=== PATIENT | female | born 1930 | race Caucasian/White ===

== ENCOUNTER → 2018-02-03 | Day surgery (SDC) | payer OTHER, BC ==
[~2018-02-03] MED LIST: BUPIVACAINE HCL/PF 0.5% (5MG/ML) 10 ML VIAL ONE
[2018-02-03 09:35] LABS: BASO % 0.6 % (0-2.0); EOS % 1.3 % (0-4.5); HEMATOCRIT 39.6 % (32.4-45.2); HEMOGLOBIN 13.5 GM/dL (10.7-15.3); LYMPH % 14.3 % (8-40); MCH 29.3 pg (25.7-33.7); MEAN CELL VOLUME 86.2 fl (80-96); MEAN PLT VOLUME 10.2 fl (7.5-11.1); NEUT % 76.8 % (42.8-82.8); PLATELET COUNT 142 K/MM3 (134-434); RDW 14.4 % (11.6-15.6); WHITE BLOOD COUNT 7.2 K/mm3 (4.0-10.0)
[2018-02-03 09:55] LABS: INR 0.96 (0.83-1.09); PROTHROMBIN TIME (PATIENT) 11.3 SEC (9.7-13.0)
== END | disposition home or self-care (01) ==
LOC: JRADIR 08:32
PROVIDERS: ATTEND Physical Medicine & Rehabilitation
PROC: 3E0U33Z Introduction of Anti-inflammatory into Joints, Percutaneous Approach (ICD-10-PCS; principal; 2018-02-03)
PROC: 3E0U3BZ Introduction of Anesthetic Agent into Joints, Percutaneous Approach (ICD-10-PCS; 2018-02-03)
DX: M16.11 Unilateral primary osteoarthritis, right hip (principal)
CPT/HCPCS: 27093; 36415; 73525-TC-FY; 76000-TC-FY; 85025; 85610; G0260

== ENCOUNTER 2018-10-12 07:24 | Inpatient (IN) | payer OTHER, BC ==
[2018-10-04 12:38] VITALS: BMI 17.8
[2018-10-12] MEDS ORDERED: MIDAZOLAM HCL 2 MG/2 ML SINGLE DOSE VIAL ONE ×2 (07:34)
[2018-10-12] MEDS ORDERED: CEFAZOLIN 2 GM in DEXTROSE 5%-WATER - 50 ML IVPB ONE (07:35)
[2018-10-12] MEDS ORDERED: TRANEXAMIC ACID 1000 MG/10 ML VIAL IVPUSH ONE (07:35)
[2018-10-12] MEDS ORDERED: ceFAZolin SODIUM 1 GM VIAL ONE ×2 (07:39→08:34)
[2018-10-12] MEDS ORDERED: LIDOCAINE HCL/PF 2% SDV 5ML VIAL ONE (07:39)
[2018-10-12] MEDS ORDERED: SUCCINYLCHOLINE CHLORIDE 200 MG/10 ML SYRINGE ONE (07:39)
[2018-10-12] MEDS ORDERED: SODIUM CHLORIDE 0.9% P/F 10 ML VIAL IJ ONE (07:39)
[2018-10-12] MEDS ORDERED: PROPOFOL 20 ML ONE (07:39)
[2018-10-12] MEDS ORDERED: KETOROLAC TROMETHAMINE 30 MG/1 ML VIAL ONE (07:39)
[2018-10-12] MEDS ORDERED: DEXAMETHASONE SOD PHOSPHATE 4 MG/1 ML VIAL ONE (07:39)
--- NOTE | 2018-10-12 07:59 | HP ---
Satellite [facility] - Chief Complaint Chief Complaint: right hip pain - Past Medical History Allergies/Adverse Reactions: Allergies Allergy/AdvReac Type Severity Reaction Status Date / Time Iodinated Contrast Media Allergy RASH IN Verified 10/04/18 12:10 [Iodinated Contrast Media - GROIN AREA IV Dye] AND UPPER THIGHS Sulfa (Sulfonamide Allergy "UNSURE" Verified 10/04/18 12:10 Antibiotics) - Current Medications Current Medications: Home Medications Medication Instructions Recorded Atorvastatin Ca [Lipitor] 10 mg PO HS 06/06/13 Levothyroxine [Synthroid -] 75 mcg PO DAILY 06/06/13 Ranitidine [Zantac -] 150 mg PO BID 06/06/13 Atenolol [Tenormin -] 50 mg PO DAILY 01/18/14 Clopidogrel Bisulfate [Plavix -] 75 mg PO DAILY 01/19/14 Ascorbic Acid [Vitamin C] 500 mg PO DAILY 10/04/18 Biotin 5,000 mcg PO DAILY 10/04/18 Cholecalciferol (Vitamin D3) 5,000 unit PO DAILY 10/04/18 [Vitamin D3] Hydrochlorothiazide [Hctz -] 12.5 mg PO DAILY 10/04/18 Lisinopril 20 mg PO DAILY 10/04/18 Satellite Physical Exam - Physical Examination General Appearance: Well Nourished, Well Developed, Alert & Oriented x3 ENT: Clear Lung: Normal air movement Heart: Regular rate & rhythm Extremities: Other (right hip- + ttp, decr rom, nvi, xrays show grade 4 hip djd) Neurological: Intact, Alert, Oriented Satellite Impression/Plan - Impression/Plan Impression: right hip djd Operative Procedure: right mia thr Date to be Performed: 10/12/18
[2018-10-12] MEDS ORDERED: ONDANSETRON 4 MG/2 ML VIAL IVPUSH PRN (08:01)
[2018-10-12] MEDS ORDERED: LACTATED RINGERS SOLUTION 1,000 ML IV SCH ×2 (08:15→12:00)
[2018-10-12] MEDS ORDERED: DEXAMETHASONE SOD PHOSPHATE/PF 10 MG/ML SDV ONE (08:23)
[2018-10-12] MEDS ORDERED: VANCOMYCIN 1,000 MG VIAL (RESTRICTED TO ID ONLY) ONE (08:34)
[2018-10-12] MEDS ORDERED: ePHEDrine SULFATE 50 MG/1 ML AMPULE ONE (10:46)
[2018-10-12] MEDS ORDERED: VANCOMYCIN 1,000 MG VIAL (RESTRICTED TO ID ONLY) IVPB ONE (11:20)
[2018-10-12] MEDS ORDERED: RANITIDINE HCL 150 MG TABLET (FP) PO PRN (11:50)
[2018-10-12] MEDS ORDERED: MAG HYDROX/AL HYDROX/SIMETH 30 ML UNIT-DOSE CUP PO PRN (11:51)
[2018-10-12] MEDS ORDERED: MAGNESIUM HYDROX 2400MG/30ML ORAL SUSPENSION 30 ML CUP PO PRN (11:51)
--- NOTE | 2018-10-12 11:57 | OP ---
Operative Note - Note: Operative Date: 10/12/18 (tia) Pre-Operative Diagnosis: right hip djd Operation: right mia thr Post-Operative Diagnosis: Same as Pre-op Surgeon: Yusuf Alaniz Optoelectronics Engineer: Eron Ward Anesthesiologist/PROJECT DEVELOPMENT COORDINATOR: Sean Garcia Anesthesia: Spinal, Local Specimens Removed: femoral head Estimated Blood Loss (mls): 100 Operative Report Dictated: Yes
--- NOTE | 2018-10-12 12:29 | SPEC ---
DATE OF OPERATION: 10/12/2018 PREOPERATIVE DIAGNOSIS: Degenerative joint disease right hip. POSTOPERATIVE DIAGNOSIS: Degenerative joint disease right hip. PROCEDURE PERFORMED: Right total hip replacement with robotic-assisted navigation (MAKOplasty). SURGICAL ATTENDING: Yusuf Alaniz MD NETWORK CABLE INSTALLER: GLENN Cee ANESTHESIA: Regional and spinal. CLOSURE: An Accolade II size 5 press-fit femoral stem, a standard MDM head, and a 48 mm press-fit Trident II acetabulum. Number 1 Vicryl for fascia, 0 and 2-0 subcutaneous, 3-0 V-Loc subcuticular with skin glue for skin, 4-0 undyed Vicryl for pin sites. ESTIMATED BLOOD LOSS: Less than 100 mL. COMPLICATIONS: None. CONDITION: To the recovery room in stable condition. DESCRIPTION OF PROCEDURE: The patient was taken to the operating room on October 12, 2018. General and regional anesthesia was administered by the anesthesiologist. IV Kefzol and TXA were administered prophylactically prior to the case. The patient was placed in the lateral decubitus position will all prominences well-padded. The right hip area was prepped and draped in the usual sterile fashion. Using 3 small stab incisions over the iliac crest, 3 threaded pins were drilled in power fashion through the 2 tables of the crest. These pins were fastened and the navigation array for the Anthony navigation system. Next, a 12 to 15-cm curved longitudinal incision over the posterolateral aspect of the greater trochanter was incised. Hemostasis was achieved with Bovie cautery. Sharp dissection was carried down to level of the fascia. The fascia was opened the entire length of the incision, spreading the fibers of the gluteus laine in the direction of origin. A Charnley retractor was placed in this layer. Care was taken not to impale the sciatic nerve. The short external rotators were detached off the insertion of the greater trochanter and peeled off the capsule. A posterior capsulotomy was then performed. A check point was malleted into the greater trochanter and a point on the inferior pole of the patella was obtained as well. These 2 points were used to assess the preoperative offset and limb lengths of the hip. The hip was then dislocated. The femoral neck was then osteotomized down to the appropriate level as directed by the navigation device. Anterior and posterior retractors were placed, exposing the acetabulum. A circumferential labral excision was performed. A check point was malleted into the acetabulum as well. Multiple sites inside the acetabulum and around the rim were utilized to register the acetabulum with the navigation device. An excellent registration of less than 0.5 mm was obtained. The hip was then reamed with the appropriate reamer down to the appropriate depth, with the appropriate orientation and version as assessed on our preoperative plan for this patient. The reamer was removed and the acetabulum was inspected to have good bleeding surfaces throughout. The real acetabular cup was then malleted down into place, with the holes in the appropriate position, until an excellent fixation was obtained. No screws were necessary. The navigation device ensured appropriate orientation and version, with the depth as predetermined. The appropriate liner was then clipped into place. Attention was directed to the femur. The proximal femur was prepared by use a box chisel, a canal finder and serial broaches until the broach achieved excellent rigidity in the proximal femur with the appropriate version being applied. A calcar planer was used to smooth off the calcar flush with the trial components. A trial reduction with the appropriate head was done, and the hip was reduced. The hip was taken through a range of motion from full extension with external rotation to marked flexion, and was stable at 90 degrees of flexion. It was stable to marked abduction and internal rotation, with a positive hang test and negative telescoping. Limb lengths were ascertained visually as well as with the navigation device to be within the targeted range for this patient. The trial component was removed. The real component was then malleted into place. The head was cold welded to the trunnion, and the hip was reduced. Range of motion, stability and limb lengths were as described in the trial component. Then the hip was pulse antibiotic irrigated. Vancomycin powder was placed in the hip joint. The capsule was closed. The fascia was then closed as well using number 1 Vicryl interrupted suture, 0 and 2-0 subcutaneous, and 3-0 V-Loc for the skin. 4-0 undyed Vicryl was used to close the pin sites after the pins were removed. All check points were also removed. Sterile Aquacel dressing was applied. The patient was awakened from anesthesia and transferred into the supine position. Bilateral SCDs and an abduction pillow were placed. X-rays revealed excellent position of the components. The patient was transferred to the recovery room in stable condition, with no complications. Estimated blood loss was less than 100 mL. Alicia GAMA/[id number]
[2018-10-12] MEDS: CEFAZOLIN 2 GM/D5W 2 GM/50 ML ML IVPB SCH (18:36)
[2018-10-12] MEDS: ATORVASTATIN CA 10 MG TABLET (FP) PO SCH (21:40)
[2018-10-12] MEDS: SENNOSIDES/DOCUSATE COMBO (SENNA PLUS) TABLET (UD) PO SCH (21:40)
[2018-10-12] MEDS: oxyCODONE HCL 5 MG TABLET PO PRN (22:42)
[2018-10-13] MEDS: CEFAZOLIN 2 GM/D5W 2 GM/50 ML ML IVPB SCH (02:02)
[2018-10-13 06:58] LABS: HEMATOCRIT 32.5 % (32.4-45.2); HEMOGLOBIN 10.4 GM/dl (10.7-15.3); MCH 27.9 pg (25.7-33.7); MEAN CELL VOLUME 87.2 fl (80-96); MEAN PLT VOLUME 8.5 fl (7.5-11.1); PLATELET COUNT 147 K/MM3 (134-434); RBC 3.73 M/mm3 (3.60-5.2); RDW 13.6 % (11.6-15.6); WHITE BLOOD COUNT 12.6 K/mm3 (4.0-10.8)
[2018-10-13] MEDS ORDERED: ATENOLOL 50 MG TABLET (FP) PO SCH (10:00)
[2018-10-13] MEDS: CLOPIDOGREL BISULFATE 75 MG TABLET (FP) PO SCH (10:12)
[2018-10-13] MEDS: HYDROCHLOROTHIAZIDE 12.5 MG CAPSULE (FP) PO SCH (10:12)
[2018-10-13] MEDS: LEVOTHYROXINE NA 75 MCG TABLET (FP) PO SCH (10:12)
[2018-10-13] MEDS: MULTIVITAMINS (DAILY MVI) TABLET (FP) PO SCH (10:12)
[2018-10-13] MEDS: LISINOPRIL 20 MG TABLET (FP) PO SCH (10:13)
[2018-10-13] MEDS: SENNOSIDES/DOCUSATE COMBO (SENNA PLUS) TABLET (UD) PO SCH ×2 (10:13→21:21)
[2018-10-13] MEDS: oxyCODONE HCL 5 MG TABLET PO PRN (10:14)
--- NOTE | 2018-10-13 12:11 | PN ---
Progress Note (short form) - Note Progress Note: Ortho Pt seen and examined s/p right mia thr pod #1 Selected Entries 10/13/18 06:00 Temperature 97.9 F Pulse Rate 79 Respiratory 18 Rate Blood Pressure 105/47 L Laboratory Tests 10/13/18 06:53 WBC 12.6 H Hgb 10.4 L Hct 32.5 Plt Count 147 dressing c/d/i, calf soft, nt nvi a/p PT hip precautions dvt ppx pain control d/c planning for snf
--- NOTE | 2018-10-13 12:55 | PN ---
Progress Note, Physician Chief Complaint: s/p right hip arthroplasty under spinal anesthesia post op day one History of Present Illness: paravertebral block for post op pain control. - Current Medication List Current Medications: Active Medications Al Hydroxide/Mg Hydroxide (Mylanta Oral Suspension -) 30 ml PO Q4H PRN PRN Reason: DYSPEPSIA Atenolol (Tenormin -) 50 mg PO DAILY [facility] Last Admin: 10/13/18 10:12 Dose: 50 mg Atorvastatin Calcium (Lipitor -) 10 mg PO HS [facility] Last Admin: 10/12/18 21:40 Dose: 10 mg Clopidogrel Bisulfate (Plavix -) 75 mg PO DAILY [facility] Last Admin: 10/13/18 10:12 Dose: 75 mg Fentanyl (Sublimaze Injection -) 25 mcg IVPUSH [id number] PRN PRN Reason: PAIN-PACU ORDER X 4 DOSES ONLY Hydrochlorothiazide (Hctz -) 12.5 mg PO DAILY [facility] Last Admin: 10/13/18 10:12 Dose: 12.5 mg Lactated Ringer's (Lactated Ringers Solution) 1,000 mls @ 75 mls/hr IV ASDIR [facility] Last Admin: 10/12/18 14:53 Dose: Not Given Levothyroxine Sodium (Synthroid -) 75 mcg PO DAILY [facility] Last Admin: 10/13/18 10:12 Dose: 75 mcg Lisinopril (Prinivil) 20 mg PO DAILY [facility] Last Admin: 10/13/18 10:13 Dose: 20 mg Magnesium Hydroxide (Milk Of Magnesia -) 30 ml PO PRN PRN PRN Reason: CONSTIPATION Multivitamins/Minerals/Vitamin C (Tab-A-Vit -) 1 tab PO DAILY [facility] Last Admin: 10/13/18 10:12 Dose: 1 tab Ondansetron HCl (Zofran Injection) 4 mg IVPUSH Q6H PRN PRN Reason: NAUSEA AND/OR VOMITING Ranitidine HCl (Zantac -) 150 mg PO DAILY PRN PRN Reason: INDIGESTION Senna/Docusate Sodium (Pericolace -) 2 tablet PO BID [facility] Last Admin: 10/13/18 10:13 Dose: 2 tablet - Objective Vital Signs: Vital Signs Temperature 97.9 F 10/13/18 06:00 Pulse Rate 79 10/13/18 06:00 Respiratory Rate 18 10/13/18 06:00 Blood Pressure 105/47 L 10/13/18 06:00 O2 Sat by Pulse Oximetry (%) 100 10/13/18 06:00 Constitutional: Yes: Well Nourished Cardiovascular: Yes: WNL Respiratory: Yes: WNL Gastrointestinal: Yes: WNL Labs: CBC, BMP 10/13/18 06:53 Assessment/Plan No adverse reaction to anesthetic, pain controlled. dept of anesthesia will sign off care at this time
[2018-10-13] MEDS: traMADol HCL 50 MG TABLET PO PRN ×2 (17:32→21:20)
--- NOTE | 2018-10-13 21:16 | PN ---
Progress Note, Physician Chief Complaint: s/p right mia thr pod #1 History of Present Illness: 88 Y old lady with H/O HTN,SC S/P stent, HLD doing well after surgey having Low BP Decrease Atenelol to 25 Lisinopril to 10 Pain Better controlled with Tramadol - Current Medication List Current Medications: Active Medications Al Hydroxide/Mg Hydroxide (Mylanta Oral Suspension -) 30 ml PO Q4H PRN PRN Reason: DYSPEPSIA Atenolol (Tenormin -) 50 mg PO DAILY [facility] Last Admin: 10/13/18 10:12 Dose: 50 mg Atorvastatin Calcium (Lipitor -) 10 mg PO HS [facility] Last Admin: 10/12/18 21:40 Dose: 10 mg Clopidogrel Bisulfate (Plavix -) 75 mg PO DAILY [facility] Last Admin: 10/13/18 10:12 Dose: 75 mg Fentanyl (Sublimaze Injection -) 25 mcg IVPUSH [id number] PRN PRN Reason: PAIN-PACU ORDER X 4 DOSES ONLY Hydrochlorothiazide (Hctz -) 12.5 mg PO DAILY [facility] Last Admin: 10/13/18 10:12 Dose: 12.5 mg Lactated Ringer's (Lactated Ringers Solution) 1,000 mls @ 75 mls/hr IV ASDIR [facility] Last Admin: 10/12/18 14:53 Dose: Not Given Levothyroxine Sodium (Synthroid -) 75 mcg PO DAILY [facility] Last Admin: 10/13/18 10:12 Dose: 75 mcg Lisinopril (Prinivil) 20 mg PO DAILY [facility] Last Admin: 10/13/18 10:13 Dose: 20 mg Magnesium Hydroxide (Milk Of Magnesia -) 30 ml PO PRN PRN PRN Reason: CONSTIPATION Multivitamins/Minerals/Vitamin C (Tab-A-Vit -) 1 tab PO DAILY [facility] Last Admin: 10/13/18 10:12 Dose: 1 tab Ondansetron HCl (Zofran Injection) 4 mg IVPUSH Q6H PRN PRN Reason: NAUSEA AND/OR VOMITING Ranitidine HCl (Zantac -) 150 mg PO DAILY PRN PRN Reason: INDIGESTION Senna/Docusate Sodium (Pericolace -) 2 tablet PO BID [facility] Last Admin: 10/13/18 10:13 Dose: 2 tablet Tramadol HCl (Ultram -) 50 mg PO Q4H PRN PRN Reason: PAIN LEVEL 1-5 Last Admin: 10/13/18 17:32 Dose: 50 mg - Objective Vital Signs: Vital Signs Temperature 97.5 F L 10/13/18 18:00 Pulse Rate 67 10/13/18 18:00 Respiratory Rate 18 10/13/18 20:19 Blood Pressure 93/46 L 10/13/18 18:00 O2 Sat by Pulse Oximetry (%) 99 10/13/18 20:19 Constitutional: Yes: No Distress Eyes: Yes: Conjunctiva Clear HENT: Yes: Atraumatic, Normocephalic Neck: Yes: Supple, Trachea Midline Respiratory: Yes: Regular, CTA Bilaterally Gastrointestinal: Yes: Normal Bowel Sounds, Soft Musculoskeletal: Yes: Joint Stiffness Edema: No Peripheral Pulses WNL: Yes Neurological: Yes: Alert, Oriented, Cran Nerves II-XII Intact Labs: CBC, BMP 10/13/18 06:53 Problem List - Problems (1) Status post right hip replacement Code(s): Z96.641 - PRESENCE OF RIGHT ARTIFICIAL HIP JOINT (2) HTN (hypertension) Code(s): I10 - ESSENTIAL (PRIMARY) HYPERTENSION (3) History of SC (myocardial infarction) Code(s): I25.2 - OLD MYOCARDIAL INFARCTION (4) DJD (degenerative joint disease) Code(s): M19.90 - UNSPECIFIED OSTEOARTHRITIS, UNSPECIFIED SITE Assessment/Plan Pt will be going to [facility] discussed with senior living admitting
[2018-10-13] MEDS: ATORVASTATIN CA 10 MG TABLET (FP) PO SCH (21:20)
[2018-10-14] MEDS: traMADol HCL 50 MG TABLET PO PRN (06:28)
[2018-10-14 07:52] LABS: HEMATOCRIT 30.2 % (32.4-45.2); HEMOGLOBIN 9.8 GM/dl (10.7-15.3); MCHC 32.4 g/dl (32.0-36.0); MEAN CELL VOLUME 86.5 fl (80-96); PLATELET COUNT 130 K/MM3 (134-434); RBC 3.49 M/mm3 (3.60-5.2); RDW 13.8 % (11.6-15.6); WHITE BLOOD COUNT 10.3 K/mm3 (4.0-10.8)
--- NOTE | 2018-10-14 07:59 | PN ---
Progress Note (short form) - Note Progress Note: Ortho Pt seen and examined s/p right mia thr pod #2 Selected Entries 10/14/18 06:00 Temperature 98.4 F Pulse Rate 69 Respiratory 19 Rate Blood Pressure 95/55 L Laboratory Tests 10/14/18 07:12 WBC Pending Hgb Pending Hct Pending Plt Count Pending dressing c/d/i, calf soft, nt nvi a/p PT hip precautions dvt ppx pain control d/c planning for snf tomorrow
[2018-10-14] MEDS: SENNOSIDES/DOCUSATE COMBO (SENNA PLUS) TABLET (UD) PO SCH ×2 (09:15→21:39)
[2018-10-14] MEDS: MULTIVITAMINS (DAILY MVI) TABLET (FP) PO SCH (09:16)
[2018-10-14] MEDS: LISINOPRIL 20 MG TABLET (FP) PO SCH (09:16)
[2018-10-14] MEDS: CLOPIDOGREL BISULFATE 75 MG TABLET (FP) PO SCH (09:16)
[2018-10-14] MEDS: HYDROCHLOROTHIAZIDE 12.5 MG CAPSULE (FP) PO SCH (09:16)
[2018-10-14] MEDS: LISINOPRIL 10 MG TABLET (FP) PO SCH (09:16)
[2018-10-14] MEDS: ATENOLOL 25 MG TABLET (FP) PO SCH (09:16)
[2018-10-14] MEDS: LEVOTHYROXINE NA 75 MCG TABLET (FP) PO SCH (09:16)
--- NOTE | 2018-10-14 20:46 | PN ---
Progress Note, Physician Chief Complaint: s/p right mia thr pod #2 History of Present Illness: 88 Y old lady with H/O HTN,FL S/P stent, HLD doing well after surgey having Low BP Decrease Atenelol to 25 Lisinopril to 10 Pain Better controlled with Tramadol Pt BP is better today - Current Medication List Current Medications: Active Medications Al Hydroxide/Mg Hydroxide (Mylanta Oral Suspension -) 30 ml PO Q4H PRN PRN Reason: DYSPEPSIA Atenolol (Tenormin -) 25 mg PO DAILY [facility] Last Admin: 10/14/18 09:16 Dose: Not Given Atorvastatin Calcium (Lipitor -) 10 mg PO HS [facility] Last Admin: 10/13/18 21:20 Dose: 10 mg Clopidogrel Bisulfate (Plavix -) 75 mg PO DAILY [facility] Last Admin: 10/14/18 09:16 Dose: 75 mg Fentanyl (Sublimaze Injection -) 25 mcg IVPUSH [id number] PRN PRN Reason: PAIN-PACU ORDER X 4 DOSES ONLY Hydrochlorothiazide (Hctz -) 12.5 mg PO DAILY [facility] Last Admin: 10/14/18 09:16 Dose: Not Given Lactated Ringer's (Lactated Ringers Solution) 1,000 mls @ 75 mls/hr IV ASDIR [facility] Last Admin: 10/12/18 14:53 Dose: Not Given Levothyroxine Sodium (Synthroid -) 75 mcg PO DAILY [facility] Last Admin: 10/14/18 09:16 Dose: 75 mcg Lisinopril (Prinivil) 20 mg PO DAILY [facility] Last Admin: 10/14/18 09:16 Dose: Not Given Lisinopril (Prinivil) 10 mg PO DAILY [facility] Last Admin: 10/14/18 09:16 Dose: Not Given Magnesium Hydroxide (Milk Of Magnesia -) 30 ml PO PRN PRN PRN Reason: CONSTIPATION Multivitamins/Minerals/Vitamin C (Tab-A-Vit -) 1 tab PO DAILY [facility] Last Admin: 10/14/18 09:16 Dose: 1 tab Ondansetron HCl (Zofran Injection) 4 mg IVPUSH Q6H PRN PRN Reason: NAUSEA AND/OR VOMITING Ranitidine HCl (Zantac -) 150 mg PO DAILY PRN PRN Reason: INDIGESTION Senna/Docusate Sodium (Pericolace -) 2 tablet PO BID [facility] Last Admin: 10/14/18 09:15 Dose: 2 tablet Tramadol HCl (Ultram -) 50 mg PO Q4H PRN PRN Reason: PAIN LEVEL 1-5 Last Admin: 10/14/18 06:28 Dose: 50 mg - Objective Vital Signs: Vital Signs Temperature 98.6 F 10/14/18 18:00 Pulse Rate 76 10/14/18 18:00 Respiratory Rate 18 10/14/18 19:45 Blood Pressure 100/40 L 10/14/18 18:00 O2 Sat by Pulse Oximetry (%) 96 10/14/18 19:45 Constitutional: Yes: No Distress Eyes: Yes: Conjunctiva Clear, EOM Intact HENT: Yes: Atraumatic, Normocephalic Neck: Yes: Supple, Trachea Midline Cardiovascular: Yes: Regular Rate and Rhythm, S1, S2 Respiratory: Yes: Regular, CTA Bilaterally Gastrointestinal: Yes: Normal Bowel Sounds, Soft Musculoskeletal: Yes: Joint Stiffness Edema: No Labs: CBC, BMP 10/14/18 07:12 Problem List - Problems (1) Status post right hip replacement Code(s): Z96.641 - PRESENCE OF RIGHT ARTIFICIAL HIP JOINT (2) HTN (hypertension) Code(s): I10 - ESSENTIAL (PRIMARY) HYPERTENSION (3) History of [place] (myocardial infarction) Code(s): I25.2 - OLD MYOCARDIAL INFARCTION (4) DJD (degenerative joint disease) Code(s): M19.90 - UNSPECIFIED OSTEOARTHRITIS, UNSPECIFIED SITE
[2018-10-14] MEDS: ATORVASTATIN CA 10 MG TABLET (FP) PO SCH (21:39)
[2018-10-15 06:31] VITALS: BP 120/54; PULSE 84; TEMP 98.8
--- NOTE | 2018-10-15 09:01 | PN ---
Progress Note (short form) - Note Progress Note: Ortho Pt seen and examined s/p right mia thr pod #3 Selected Entries 10/15/18 06:00 Temperature 98.8 F Pulse Rate 84 Respiratory 18 Rate Blood Pressure 120/54 L Laboratory Tests 10/14/18 07:12 WBC 10.3 Hgb 9.8 L Hct 30.2 L Plt Count 130 L dressing c/d/i, calf soft, nt nvi a/p PT hip precautions dvt ppx pain control d/c to snf today f/u in 1 week
--- NOTE | 2018-10-15 09:02 | DS ---
Physical Examination Vital Signs: Vital Signs Temperature 98.8 F 10/15/18 06:00 Pulse Rate 84 10/15/18 06:00 Respiratory Rate 18 10/15/18 07:48 Blood Pressure 120/54 L 10/15/18 06:00 O2 Sat by Pulse Oximetry (%) 99 10/15/18 07:48 Labs: CBC, BMP 10/14/18 07:12 Discharge Summary Reason For Visit: OSTEOARTHRITIS Current Active Problems DJD (degenerative joint disease) (Acute) HTN (hypertension) (Acute) History of KS (myocardial infarction) (Acute) Status post right hip replacement (Acute) Procedures: Principal: right thr Hospital Course: admitted for elective right mia thr, post-op as per protocol, stable for d/c Condition: Good - Instructions Diet, Activity, Other Instructions: Post-op Instructions-Total Hip Replacement Call the office for a follow-up appointment in 1 week - [phone] Resume Plavix 75mg PO daily. Apply Graduated Compression Stockings (TEDs) to both lower extremities- remove daily for hygiene ONLY Apply Sequential Compression Device (SCDs) to both Lower extremities remove for PT and hygiene ONLY Apply cold packs to affected area for 15 minutes every 2 hours. Physical Therapist will come to your home for the first 5 days. You will be set up with outpatient PT at your first post-operative visit. Patient may ambulate as tolerated-encourage self care (at least every 2-3 hours while awake) with walker or cane Maintain Aquacel (waterproof) dressing to operative wound (will be removed by surgeon at first office visit) Shower with Aquacel dressing in place-if Aquacel integrity compromised, remove and apply dry sterile dressing and notify Orthopedist. DO NOT SHOWER unless Orthopedists approves without Aquacel dressing CONTACT THE OFFICE FOR ANY CHANGE IN YOUR CONDITION (for example-fever greater than 102 degrees, excessive bleeding from operative site, purulent drainage, severe swelling or pain) GO TO THE EMERGENCY ROOM IF THERE IS A MEDICAL EMERGENCY Hip Precautions: * Keep a rolled towel under affected heel while in bed or chair (to keep knee in extension) * Dependent upon approach: * Posterior - do not cross legs; do not sit on low chairs or toilets. * If you have any questions, please do not hesitate to call the office - . Referrals: Yusuf Alaniz MD [Staff Physician] - Disposition: [facility]NS/HOME HEALTH CARE - Home Medications Comprehensive Discharge Medication List: Ambulatory Orders Atorvastatin Ca [Lipitor] 10 mg PO HS 06/06/13 Levothyroxine [Synthroid -] 75 mcg PO DAILY 06/06/13 Ranitidine [Zantac -] 150 mg PO DAILY PRN 06/06/13 Atenolol [Tenormin -] 50 mg PO DAILY 01/18/14 Clopidogrel Bisulfate [Plavix -] 75 mg PO DAILY 01/19/14 Ascorbic Acid [Vitamin C] 500 mg PO DAILY 10/04/18 Biotin 5,000 mcg PO DAILY 10/04/18 Cholecalciferol (Vitamin D3) [Vitamin D3] 5,000 unit PO DAILY 10/04/18 Hydrochlorothiazide [Hctz -] 12.5 mg PO DAILY 10/04/18 Lisinopril 20 mg PO DAILY 10/04/18
[2018-10-15] MEDS: CLOPIDOGREL BISULFATE 75 MG TABLET (FP) PO SCH (09:11)
[2018-10-15] MEDS: traMADol HCL 50 MG TABLET PO PRN (09:11)
[2018-10-15] MEDS: LISINOPRIL 20 MG TABLET (FP) PO SCH (09:11)
[2018-10-15] MEDS: MULTIVITAMINS (DAILY MVI) TABLET (FP) PO SCH (09:11)
[2018-10-15] MEDS: SENNOSIDES/DOCUSATE COMBO (SENNA PLUS) TABLET (UD) PO SCH (09:12)
[2018-10-15] MEDS: LEVOTHYROXINE NA 75 MCG TABLET (FP) PO SCH (09:12)
[2018-10-15] MEDS: ATENOLOL 25 MG TABLET (FP) PO SCH (09:12)
[2018-10-15] MEDS: LISINOPRIL 10 MG TABLET (FP) PO SCH (09:12)
[2018-10-15] MEDS: HYDROCHLOROTHIAZIDE 12.5 MG CAPSULE (FP) PO SCH (09:13)
--- NOTE | 2018-10-15 12:57 | PATH ---
Surgical Pathology Report Patient Name: LU GARCÍA Med. Rec. #: [id number] /Age/Gender: 1930 (Age: 88) / F Account: [id number] Location: [facility] MED-SURG Taken: 10/12/2018 Received: 10/12/2018 Reported: 10/15/2018 Physicians: Yusuf Alaniz M.D. Specimen(s) Received RIGHT FEMORAL HEAD Clinical History Right hip osteoarthritis Final Diagnosis RIGHT FEMORAL HEAD, RESECTION: DEGENERATIVE JOINT DISEASE, RIGHT HIP. Electronically Signed Ember Ramon M.D. Gross Description Received in formalin, labeled "right femoral head," is a 3.5 x 3.2 x 3 cm. femoral head with 0.5 cm portion of femoral neck . The margin of resection is smooth. The articular surface shows areas of eburnation and granularity. The underlying trabecular bone is yellow and hard. A industrial relations representative section is submitted in one cassette, following decalcification. AE/10/14/2018 ebram/10/14/2018
== END 2018-10-15 10:30 | DRG 470 ==
LOC: FM/S 07:24
PROVIDERS: ADMIT Orthopaedic Surgery; ATTEND Orthopaedic Surgery
PROC: 8E0W0CZ Robotic Assisted Procedure of Trunk Region, Open Approach (ICD-10-PCS; 2018-10-12)
PROC: 0SR90JZ Replacement of Right Hip Joint with Synthetic Substitute, Open Approach (ICD-10-PCS; principal; 2018-10-12 10:42)
DX: M16.11 Unilateral primary osteoarthritis, right hip (principal); I25.2 Old myocardial infarction; I10 Essential (primary) hypertension; E78.5 Hyperlipidemia, unspecified
CPT/HCPCS: 36415; 73502-TC-RT-FY; 85027; 88304-TC; 88311-TC; 94760; 97110-GP; 97116-GP; 97162-GP